=== PATIENT | male | born 1995 | race Caucasian/White ===

== ENCOUNTER 2016-08-30 16:51 | Emergency (ER) | payer OTHER ==
[~2016-08-30] VITALS: Ht 185.4 cm; Wt 72.7 kg
[2016-08-30 17:00] VITALS: BP 110/70; PULSE 77; TEMP 97.6
[2016-08-30] MEDS ORDERED: NORCO 325 MG-7.1 TAB PO (18:42)
== END 2016-08-30 18:53 | disposition home or self-care (01) ==
LOC: COL.ER 16:51
DX: S52.125A Nondisplaced fracture of head of left radius, initial encounter for closed fracture (principal); V00.131A Fall from skateboard, initial encounter; Y92.488 Other paved roadways as the place of occurrence of the external cause; Y92.830 Public park as the place of occurrence of the external cause
CPT/HCPCS: J1170

== ENCOUNTER 2017-10-25 04:48 | Emergency (ER) | payer OTHER ==
[~2017-10-25] VITALS: Ht 185.4 cm; Wt 72.7 kg
[~2017-10-25 04:48] MED LIST: NORCO 325 MG-7.1 TAB PO
[2017-10-25 04:56] VITALS: TEMP 98.4
[2017-10-25] MEDS ORDERED: VOLTAREN 75 DR75 MG PO (05:40)
[2017-10-25 06:48] VITALS: BP 106/58; PULSE 69
== END 2017-10-25 06:48 | disposition home or self-care (01) ==
LOC: COL.ER 04:48
DX: R07.89 Other chest pain (principal); Z87.828 Personal history of other (healed) physical injury and trauma
CPT/HCPCS: J1885